=== PATIENT | female | born 1960 | race Caucasian/White ===

== ENCOUNTER 2021-06-28 14:30 | Day surgery (SDC) | payer BC, OTHER, SELFPAY ==
[2021-06-22 08:17] VITALS: BMI 16.5
[2021-06-28] VITALS (11 sets, daily range): BP systolic 108–126; BP diastolic 72–85; PULSE 89–104; RESP 14–24; TEMP 36.5–36.7; O2SAT 94–100
[2021-06-28] MEDS: sodium chloride 0.9% 1,000 ML 30 ML IV (11:35)
--- NOTE | 2021-06-28 12:00 | US_ITS ---
WS: [id number] INDICATION: Liver biopsy TECHNIQUE: Ultrasound-guided liver biopsy FINDINGS: Outside CT was reviewed. The procedure including risks, benefits, and complications were discussed the patient who agreed to p roceed. Timeout was performed. Using sterile technique, the patient was prepped and draped in usual s terile fashion. After 1% lidocaine using ultrasound guidance 5-6 core samples were obtained of a jackie nant cluster of lesions in the anterior liver. No immediate complications. Patient was discharged 2 h ours postprocedure in stable condition. US/US biopsy liver [id number] IMPRESSION: Uncomplicated Liver biopsy. Pathology is pending.
[2021-06-28 12:18] LABS: INR 1.29 (0.8-1.2)
[2021-06-28] MEDS: fentaNYL 50 mcg/mL INJ 2mL 25 MCG IVP ×2 (12:30→12:41)
--- NOTE | 2021-06-28 12:30 | SUR.OPER ---
Dr. Sher at bedside to perform ultrasound biopsy of liver mass. Time out completed, total of 10 mL Lidocaine given at biopsy site as local anesthetic. Pt on monitor with O2 at 2L via NC in place. Total of 50 mcg Fentanyl and 2 mg Versed given IVP during procedure as ordered. Pt tolerated procedure well. Drowsy but arouses easily to verbal stimuli. 4X4 with opsite applied to RUQ. Site without hematoma or bleeding noted.
[2021-06-28] MEDS: midazolam 1 mg/mL INJ 2 mL IVP ×2 (12:31→12:42)
--- NOTE | 2021-06-28 13:12 | SUR.PHASEII ---
Pt family member called and updated on pt status. Pt to stay for 2 hours and be discharged if VSS and no bleeding.
== END 2021-06-28 14:45 | disposition home or self-care (01) ==
LOC: GILAB 06-29 14:13
PROVIDERS: Radiology Neuroradiology; PCP Family Medicine; Visit Provider Internal Medicine
DX: C22.7 Other specified carcinomas of liver (principal)
CPT/HCPCS: 36415; 47000; 76942; 85610; 88307; 96361; 96374; 96375; J2250; J3010; J7030

== ENCOUNTER 2021-07-04 11:23 | Outpatient (CLI) | payer BC, OTHER, SELFPAY ==
[2021-07-04 12:05] LABS: Basophils # 0.1 10^3/uL (0.0-0.1); Basophils % 0.6 %; Eosinophils # 0.1 10^3/uL (0.0-0.8); Hematocrit 45.4 % (37.0-47.0); Hemoglobin 14.8 g/dL (11.5-15.3); Lymphocytes # 2.8 10^3/uL (0.8-4.8); Lymphocytes % 25.6 %; Mean Corpuscular HGB Conc 32.6 g/dL (30.0-36.0); Mean Corpuscular Hemoglobin 27.6 pg (28.0-34.0); Mean Corpuscular Volume 84.5 fl (81-99); Mean Platelet Volume 9.5 fL (7.4-10.4); Monocytes # 0.9 10^3/uL (0.2-0.9); Monocytes % 7.9 %; Neutrophils # 7.01 10^3/uL (1.8-7.7); Neutrophils % 64.3 %; Nucleated Red Blood Cells % 0 %; Platelet Count 672 10^3/cmm (130-400); Red Blood Count 5.37 10^6/uL (4.1-5.3); Red Cell Distribution Width 16.9 % (12.1-15.1); White Blood Count 10.9 10^3/uL (4.0-10.0)
[2021-07-04 12:08] LABS: Ammonia 41 umol/L (11-51)
[2021-07-04 12:29] LABS: Tumor Marker Alpha Fetoprotein 11.4 ng/mL (0-8.3)
[2021-07-04 12:40] LABS: Alanine Aminotransferase 29 U/L (0-33); Albumin Level 2.7 g/dL (3.5-5.2); Alkaline Phosphatase 242 IU/L (35-105); Anion Gap 13.4 (5-19); Aspartate Amino Transferase 34 U/L (0-32); Blood Urea Nitrogen 10 mg/dL (8-23); Calcium 8.1 mg/dL (8.5-10.5); Carbon Dioxide 22 mmol/L (22-29); Chloride 101 mmol/L (98-107); Globulin 3.3 g/dL (1.3-4.6); Glomerular Filtration Rate 125.4 mL/min (90-130); Glucose 77 mg/dL (65-115); Osmolality Calculated 274 mOsm/kg (285-295); Potassium 3.4 mmol/L (3.5-5.1); Sodium 133 mmol/L (136-145); Total Bilirubin 0.4 mg/dL (0.15-1.2)
== END 2021-07-04 11:24 | disposition home or self-care (01) ==
LOC: LAB 11:33
PROVIDERS: PCP Family Medicine; Visit Provider Internal Medicine
DX: R16.0 Hepatomegaly, not elsewhere classified (principal); R93.2 Abnormal findings on diagnostic imaging of liver and biliary tract
CPT/HCPCS: 80053; 82105; 82140; 85025

== ENCOUNTER 2021-07-10 09:54 | Outpatient (CLI) | payer BC, OTHER, SELFPAY ==
--- NOTE | 2021-07-10 13:26 | ONC CON_ITS ---
Dr. Welsh New Patient Note Patient: Eva Johnson Unit #: [id number]: 1960 Dicatated By: Gonzalo Welsh M.D.Date of Visit: Jul 10, 2021 Onc MED New Patient/Consult Referring Physician: Dr. Phillip Abbott M.D. History of Present Illness: Ms. Eva Johnson, is a 60-year-old female with progressive diarrhea of over 4-months duration was evaluated by GI, patient underwent EGD and colonoscopy about a month prior to diagnosis and was told that colonoscopy was not completed because of possible kink or external pressure from the liver, as per patient she underwent barium enema which was unremarkable and her EGD shows 'Raw stomach. Patient said she tried antidiarrheal medication without any success also tried liquid diet and different types of food without any success, she has lost about 30 pounds over the period of 4 months, initially she used to have cramps but no more abdominal cramps, no melena or hematochezia no mucus, no nausea or vomiting, no facial flushing, no bronchial wheezing, no abdominal fullness, no fever chills, no hemoptysis or hematemesis, no jaundice, patient denies any overseas trips. Denies any night sweats denies any recurrent fever denies any dysuria or hematuria but recently episode of UTI which was treated with antibiotics. Patient denies smoking, quit 4 years ago prior to that 30+ year history of smoking denies alcohol use. Past Medical History: There is no documented medical history. Past Surgical History: Ms. Johnson's surgical/procedural history consists of covid vaccine #2 in 2020 and covid vaccine #1 in 2020. Medications: Protonix 1 Tablet (of 40 mg) Tablet, enteric coated Oral daily Allergies: No Known Allergies. Social History: Ms. Johnson is . Ms. Johnson has never smoked. She has no history of drinking. Family History: Ms. Johnson's mother at age 67: DEMENTIA. Ms. Johnson's father at age 40: Cancer. Ms. Johnson has 1 brother who is alive. Review Of Symptoms: Review of Systems is not available for this patient. Vital Signs: Performed on Jul 10, 2021 11:18: 5, 0, 16.65 (LOW), 1.44 sq.m, 64 in, 97 %, 97 /min, 18 /min, 103/68 mm(hg), 96.3 F (LOW), and 97 lbs (HIGH). Performance Status: 1 - No physically strenuous activity, but ambulatory and able to carry out light or sedentary work (e.g. office work, light house work). (ECOG) Physical Examination: ENMT - No mouth sores, no thrush, no jaundice no cervical lymphadenopathy, Respiratory - Lungs are clear to auscultation, Cardiovascular - Regular rate and rhythm of heart, Abdomen - Soft, bowel sounds present, and no mass palpable no rebound tenderness, Extremities - Trace edema bilaterally. Lab/Imaging: Most recent lab results are not available for this patient. Impression: Neuroendocrine tumor per ultrasound-guided liver biopsy done on June 28, 2021 further evaluation showed mitotic index more than 20 mitosis per 2 mm??? and KI 67 more than 20%, being positive for CDX 2, suggestive of GI primary, as alpha-fetoprotein level was low which suggest a low probability of neuroendocrine tumor having primary liver lesion. CT scan of abdomen done on June 16, 2021 showed enlarged and cirrhotic appearance of the liver with numerous hypoenhancing lesions, solid enhancing mass in the right hepatic lobe and cystic and necrotic lesion in the left lateral lobe concerning for neoplasm, metastatic disease. 2.5 cm oval left retroperitoneal enhancing lesion concerning for mass or mesenteric lymph node. Chronic diarrhea etiology unclear, malabsorption or increase GI motility due to metabolically active neuroendocrine tumor Plan: Discussed with patient regarding her disease status and further planning, as per discussion with pathology, her liver biopsy showed neuroendocrine tumor with a high mitotic index e.g. more than 20 per 2 mm??? and Ki-67 more than 20%, suggestive of aggressive neuroendocrine tumor which may behave like small cell, at the same time, chronic diarrhea, which could be due to metabolically active neuroendocrine tumor which is less common in high-grade neuroendocrine tumor???she may have mixed type neuroendocrine tumor e.g. low-grade/high-grade. At this point , we will proceed with CT PET scan to assess the extent of the disease and possible primary and also consider serotonin level, chromogranin A level, 24-hour urine for 5-HIAA, gastrin level to confirm metabolically active neuroendocrine tumor and if PET scan shows increased activity in the liver or other places, we may consider systemic therapy with small cell lung cancer based regimen on the other hand PET scan shows no abnormal uptake and biochemical profile confirmed metabolically active neuroendocrine tumor, then will discuss with pathology again regarding mitotic index/Ki-67 and consider treatment with Sandostatin LAR 20 mg every month, which will help her diarrhea and may stabilize disease progression.And also consider octreotide scan, Her lab work-up done in her primary care's office shows mild hypokalemia, will consider KCl 20 mg p.o. daily for 1 week then as needed and also check magnesium level if low will consider supplement patient return to clinic in 10 days with CBC CMP. Signed By: Gonzalo Welsh M.D. <<Signature on File>>
[2021-07-10 13:54] LABS: Alanine Aminotransferase 31 U/L (0-33); Albumin Level 2.7 g/dL (3.5-5.2); Alkaline Phosphatase 184 IU/L (35-105); Anion Gap 12.4 (5-19); Aspartate Amino Transferase 35 U/L (0-32); Blood Urea Nitrogen 12 mg/dL (8-23); Calcium 8.6 mg/dL (8.5-10.5); Carbon Dioxide 22 mmol/L (22-29); Chloride 107 mmol/L (98-107); Globulin 3.2 g/dL (1.3-4.6); Glomerular Filtration Rate 162.3 mL/min (90-130); Glucose 76 mg/dL (65-115); Magnesium 2.1 mg/dL (1.7-2.3); Osmolality Calculated 285 mOsm/kg (285-295); Potassium 3.4 mmol/L (3.5-5.1); Sodium 138 mmol/L (136-145); Total Bilirubin 0.4 mg/dL (0.15-1.2); Total Protein 5.9 g/dL (6.6-8.7)
[2021-07-15 12:06] LABS: Gastrin 103 pg/mL (< OR = 100)
[2021-07-23 10:03] LABS: Serotonin Whole Blood >2000 ng/mL (56-244)
== END 2021-07-10 09:55 | disposition home or self-care (01) ==
LOC: ONCMED 09:58
PROVIDERS: PCP Family Medicine; Visit Provider Internal Medicine Hematology & Oncology
DX: C7A.098 Malignant carcinoid tumors of other sites (principal); C7B.01 Secondary carcinoid tumors of distant lymph nodes; C7B.09 Secondary carcinoid tumors of other sites; K52.9 Noninfective gastroenteritis and colitis, unspecified; K90.9 Intestinal malabsorption, unspecified; Z79.899 Other long term (current) drug therapy
CPT/HCPCS: 36415; 80053; 82941; 83735; 84260; 86316; 99205

== ENCOUNTER 2021-07-12 12:47 | Outpatient (CLI) | payer BC, OTHER, SELFPAY ==
[2021-07-18 18:58] LABS: 24 Hour Urine Volume 750 mL
== END 2021-07-12 12:48 | disposition home or self-care (01) ==
LOC: ONCMED 12:50
PROVIDERS: PCP Family Medicine; Visit Provider Internal Medicine Hematology & Oncology
DX: C7A.8 Other malignant neuroendocrine tumors (principal)
CPT/HCPCS: 83497

== ENCOUNTER 2021-07-28 08:51 | Outpatient (CLI) | payer BC, OTHER, SELFPAY ==
[2021-07-28 10:32] LABS: Basophils % 0.4 %; Eosinophils % 0.3 %; Hematocrit 44.2 % (37.0-47.0); Hemoglobin 14.4 g/dL (11.5-15.3); Lymphocytes # 1.9 10^3/uL (0.8-4.8); Lymphocytes % 24.3 %; Mean Corpuscular HGB Conc 32.6 g/dL (30.0-36.0); Mean Corpuscular Hemoglobin 27.5 pg (28.0-34.0); Mean Corpuscular Volume 84.4 fl (81-99); Mean Platelet Volume 10.1 fL (7.4-10.4); Monocytes # 0.7 10^3/uL (0.2-0.9); Monocytes % 9.1 %; Neutrophils # 4.99 10^3/uL (1.8-7.7); Neutrophils % 65.5 %; Nucleated Red Blood Cells % 0 %; Platelet Count 432 10^3/cmm (130-400); Red Blood Count 5.24 10^6/uL (4.1-5.3); Red Cell Distribution Width 15.2 % (12.1-15.1); White Blood Count 7.6 10^3/uL (4.0-10.0)
[2021-07-28 10:57] LABS: Alanine Aminotransferase 49 U/L (0-33); Albumin Level 2.7 g/dL (3.5-5.2); Alkaline Phosphatase 153 IU/L (35-105); Blood Urea Nitrogen 17 mg/dL (8-23); Carbon Dioxide 26 mmol/L (22-29); Chloride 102 mmol/L (98-107); Globulin 2.8 g/dL (1.3-4.6); Glomerular Filtration Rate 125.4 mL/min (90-130); Glucose 88 mg/dL (65-115); Osmolality Calculated 283 mOsm/kg (285-295); Sodium 136 mmol/L (136-145); Total Bilirubin 0.3 mg/dL (0.15-1.2); Total Protein 5.5 g/dL (6.6-8.7)
[2021-07-28 10:59] LABS: Anion Gap 12.1 (5-19); Aspartate Amino Transferase 57 U/L (0-32); Potassium 4.1 mmol/L (3.5-5.1)
[2021-07-28 11:44] LABS: Hepatitis A Antibody IgM Non-Reactive (Nonreactive); Hepatitis B Core AB, Total Non-Reactive (Nonreactive); Hepatitis B Surface AB 520.2 (11.5-1000); Hepatitis B Surface Antigen Non-Reactive (Nonreactive); Hepatitis C Virus Antibody Non-Reactive (Nonreactive)
--- NOTE | 2021-07-28 12:49 | ONC FU_ITS ---
Dr. Welsh follow up note Patient: Eva Johnson Unit #: [id number]: 1960 Dicatated By: Gonzalo Welsh M.D.Date of Visit:Jul 28, 2021 Onc Med Follow-up/Prog Note History of Present Illness: Ms. Eva Johnson, is a 60-year-old female with progressive diarrhea of over 4-months duration was evaluated by GI, patient underwent EGD and colonoscopy about a month prior to diagnosis and was told that colonoscopy was not completed because of possible kink or external pressure from the liver, as per patient she underwent barium enema which was unremarkable and her EGD shows 'Raw stomach. Patient said she tried antidiarrheal medication without any success also tried liquid diet and different types of food without any success, she has lost about 30 pounds over the period of 4 months, initially she used to have cramps but no more abdominal cramps, no melena or hematochezia no mucus, no nausea or vomiting, no facial flushing, no bronchial wheezing, no abdominal fullness, no fever chills, no hemoptysis or hematemesis, no jaundice, patient denies any overseas trips. Denies any night sweats denies any recurrent fever denies any dysuria or hematuria but recently episode of UTI which was treated with antibiotics. Patient denies smoking, quit 4 years ago prior to that 30+ year history of smoking denies alcohol use. Lab work-up done on July 18, 2021 showed serotonin level more than 2000, normal being less than 244, chromogranin A level 236,009 normal being less than 311 gastrin level 103 normal being less than 100, 24-hour urine for 5-HIAA is more than 375 normal being less than 6 , As her pathology shows grade 3 neuroendocrine tumor with a high Ki-67, and extensive liver involvement, biopsy-proven, there was a concern whether she has aggressive neuroendocrine tumor behaving like small cell carcinoma so CT PET scan done on July 27, 2021 shows borderline increased activity with SUV of 2.4 and mildly enlarged single lymph node in the left periaortic space. Moderate ascites. Hepatomegaly with heterogeneous density throughout the liver with nodular border suggesting cirrhosis Came for follow-up, still complaining of severe diarrhea 10-15 bowel movements a day, generalized weakness and fatigue, trying her best to maintain hydration, no nausea or vomiting, no fever chills, no bronchial wheezing, no facial flushing but progressive weight loss, so far she has lost about 30 pounds over the period of 6 months Medications: Imodium A-D Capsule Oral PRN, Ondansetron HCl 1 Tablet (of 4 mg) Oral PRN, Protonix 1 Tablet (of 40 mg) Tablet, enteric coated Oral daily Allergies: No Known Allergies. Review of Systems: Review of Systems is not available for this patient. Vital Signs: Performed on Jul 28, 2021 09:01 Height - 64.00 in Weight - 98.2 lbs (HIGH) BSA - 1.45 sq.m BMI - 16.86 (LOW) Temperature - 98.1 F (LOW) Pulse - 79 /min Respiration - 20 /min BP - 94/69 mm(hg) O2 Sat - 99 % Pain - 0 Performance Status: 2 - Ambulatory/capable of all self-care, unable to perform any work activities. Up and about more than 50% of waking hours. (ECOG) Physical Examination: ENMT - No mouth sores, no thrush, no jaundice, Respiratory - Lungs are clear to auscultation, Cardiovascular - Regular rate and rhythm of heart, Abdomen - Soft, bowel sounds present, Extremities - Trace edema bilaterally. Lab/Imaging: Most recent lab results are not available for this patient. Impression: Neuroendocrine tumor per ultrasound-guided liver biopsy done on June 28, 2021 further evaluation showed mitotic index more than 20 mitosis per 2 mm??? and KI 67 more than 20%, being positive for CDX 2, suggestive of GI primary, alpha-fetoprotein level was low which suggest a low probability of neuroendocrine tumor having primary liver lesion. Lab work-up done on July 18, 2021 showed serotonin level more than 2000, normal being less than 244, chromogranin A level 236,009 normal being less than 311 gastrin level 103 normal being less than 100, 24-hour urine for 5-HIAA is more than 375 normal being less than 6 , As her pathology shows grade 3 neuroendocrine tumor with a high Ki-67, and extensive liver involvement, biopsy-proven, there was a concern whether she has aggressive neuroendocrine tumor behaving like small cell carcinoma so CT PET scan done on July 27, 2021 shows borderline increased activity with SUV of 2.4 and mildly enlarged single lymph node in the left periaortic space. Moderate ascites. Hepatomegaly with heterogeneous density throughout the liver with nodular border suggesting cirrhosis CT scan of abdomen done on June 16, 2021 showed enlarged and cirrhotic appearance of the liver with numerous hypoenhancing lesions, solid enhancing mass in the right hepatic lobe and cystic and necrotic lesion in the left lateral lobe concerning for neoplasm, metastatic disease. 2.5 cm oval left retroperitoneal enhancing lesion concerning for mass or mesenteric lymph node. Chronic diarrhea etiology unclear, malabsorption or increase GI motility due to metabolically active neuroendocrine tumor Plan: Discussed with patient regarding her labs Showed white blood count 7.6 hemoglobin 14.4 hematocrit 44.2 platelets 432,000, CMP within normal limit except albumin 2.7, ALT 49, AST 57, alk phos 153 and Lab work-up done on July 18, 2021 showed serotonin level more than 2000, normal being less than 244, chromogranin A level 236,009 normal being less than 311 gastrin level 103 normal being less than 100, 24-hour urine for 5-HIAA is more than 375 normal being less than 6 , As her pathology shows grade 3 neuroendocrine tumor with a high Ki-67, and extensive liver involvement, biopsy-proven, there was a concern whether she has aggressive neuroendocrine tumor behaving like small cell carcinoma so CT PET scan done on July 27, 2021 shows borderline increased activity with SUV of 2.4 and mildly enlarged single lymph node in the left periaortic space. Moderate ascites. Hepatomegaly with heterogeneous density throughout the liver with nodular border suggesting cirrhosis Clinically, patient is in mild to moderate distress due to persistent and progressive diarrhea most likely due to metabolically active neuroendocrine tumor as her lab work-up shows very serotonin/chromogranin A level and also elevated 5-HIAA and 24-hour urine. 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 We will also consider hepatitis profile, patient has mildly elevated transaminases and also Based on scans, hepatic cirrhosis. We will also consider referral to neuroendocrine oncology clinic at [place] for evaluation regarding clinical trial if available. Patient return to clinic in 1 month with CBC CMP Signed By: Gonzalo Welsh M.D. <<Signature on File>>
== END 2021-07-28 08:52 | disposition home or self-care (01) ==
PROVIDERS: PCP Family Medicine; Visit Provider Internal Medicine Hematology & Oncology
DX: C7A.1 Malignant poorly differentiated neuroendocrine tumors (principal); R18.8 Other ascites; R19.7 Diarrhea, unspecified; R59.1 Generalized enlarged lymph nodes; K74.60 Unspecified cirrhosis of liver; Z87.891 Personal history of nicotine dependence
CPT/HCPCS: 36415; 80053; 85025; 86705; 86706; 86709; 86803; 87340; 99214

== ENCOUNTER 2021-08-02 06:41 | Outpatient (CLI) | payer BC, OTHER, SELFPAY ==
[2021-08-02] MEDS: octreotide LAR depot 20 mg Kit IM (13:55)
== END 2021-08-02 06:42 | disposition home or self-care (01) ==
LOC: ONCMED 06:42
PROVIDERS: PCP Family Medicine; Visit Provider Internal Medicine Hematology & Oncology
DX: C7A.098 Malignant carcinoid tumors of other sites (principal); Z79.899 Other long term (current) drug therapy
CPT/HCPCS: 96372; J2353

== ENCOUNTER 2021-09-04 08:40 | Outpatient (CLI) | payer BC, OTHER, SELFPAY ==
[2021-09-04 09:59] LABS: Basophils # 0.1 10^3/uL (0.0-0.1); Basophils % 0.6 %; Eosinophils % 0.4 %; Hematocrit 46.1 % (37.0-47.0); Hemoglobin 14.9 g/dL (11.5-15.3); Lymphocytes % 24.9 %; Mean Corpuscular HGB Conc 32.3 g/dL (30.0-36.0); Mean Corpuscular Hemoglobin 26.4 pg (28.0-34.0); Mean Corpuscular Volume 81.6 fl (81-99); Mean Platelet Volume 10.1 fL (7.4-10.4); Monocytes # 0.5 10^3/uL (0.2-0.9); Neutrophils # 5.54 10^3/uL (1.8-7.7); Neutrophils % 67.6 %; Nucleated Red Blood Cells % 0 %; Platelet Count 312 10^3/cmm (130-400); Red Blood Count 5.65 10^6/uL (4.1-5.3); White Blood Count 8.2 10^3/uL (4.0-10.0)
[2021-09-04 10:19] LABS: Alanine Aminotransferase 47 U/L (0-33); Alkaline Phosphatase 196 IU/L (35-105); Blood Urea Nitrogen 11 mg/dL (8-23); Calcium 7.6 mg/dL (8.5-10.5); Carbon Dioxide 24 mmol/L (22-29); Chloride 105 mmol/L (98-107); Globulin 2.9 g/dL (1.3-4.6); Glomerular Filtration Rate 101.6 mL/min (90-130); Glucose 101 mg/dL (65-115); Osmolality Calculated 282 mOsm/kg (285-295); Sodium 136 mmol/L (136-145); Total Bilirubin 0.5 mg/dL (0.15-1.2); Total Protein 4.9 g/dL (6.6-8.7)
[2021-09-04 10:25] LABS: Anion Gap 11.8 (5-19); Aspartate Amino Transferase 59 U/L (0-32); Potassium 4.8 mmol/L (3.5-5.1)
[2021-09-04] MEDS: octreotide LAR depot 20 mg Kit IM (12:00)
--- NOTE | 2021-09-05 17:31 | ONC FU_ITS ---
Dr. Welsh follow up note Patient: Eva Johnson Unit #: [id number]: 1960 Dicatated By: Gonzalo Welsh M.D.Date of Visit:Sep 04, 2021 Onc Med Follow-up/Prog Note History of Present Illness: Ms. Eva Johnson, is a 60-year-old female with progressive diarrhea of over 4-months duration was evaluated by GI, patient underwent EGD and colonoscopy about a month prior to diagnosis and was told that colonoscopy was not completed because of possible kink or external pressure from the liver, as per patient she underwent barium enema which was unremarkable and her EGD shows 'Raw stomach. Patient said she tried antidiarrheal medication without any success also tried liquid diet and different types of food without any success, she has lost about 30 pounds over the period of 4 months, initially she used to have cramps but no more abdominal cramps, no melena or hematochezia no mucus, no nausea or vomiting, no facial flushing, no bronchial wheezing, no abdominal fullness, no fever chills, no hemoptysis or hematemesis, no jaundice, patient denies any overseas trips. Denies any night sweats denies any recurrent fever denies any dysuria or hematuria but recently episode of UTI which was treated with antibiotics. Patient denies smoking, quit 4 years ago prior to that 30+ year history of smoking denies alcohol use. Lab work-up done on July 18, 2021 showed serotonin level more than 2000, normal being less than 244, chromogranin A level 236,009 normal being less than 311 gastrin level 103 normal being less than 100, 24-hour urine for 5-HIAA is more than 375 normal being less than 6 , As her pathology shows grade 3 neuroendocrine tumor with a high Ki-67, and extensive liver involvement, biopsy-proven, there was a concern whether she has aggressive neuroendocrine tumor behaving like small cell carcinoma so CT PET scan done on July 27, 2021 shows borderline increased activity with SUV of 2.4 and mildly enlarged single lymph node in the left periaortic space. Moderate ascites. Hepatomegaly with heterogeneous density throughout the liver with nodular border suggesting cirrhosis Started on Sandostatin LAR 20 mg on August 02, 2021 Came for follow-up, denies any specific complaint except persistent diarrhea which is improving since start taking Metamucil and on Sandostatin since August 02, 2021., Now started going back to work as a part-time. Denies any fever chills but mild nausea. No abdominal pain, no shortness of breath no palpitation, no facial flushing, no skin rash, tolerating Sandostatin well otherwise, patient was referred to [place] [facility] but due to her insurance coverage patient was not accepted Medications: Diphenoxylate-Atropine 1 Tablet (of 2.5-0.025 mg) Oral q 4 hours PRN, Imodium A-D Capsule Oral PRN, Ondansetron HCl 1 Tablet (of 4 mg) Oral PRN, Protonix 1 Tablet (of 40 mg) Tablet, enteric coated Oral daily Allergies: No Known Allergies. Review of Systems: Review of Systems is not available for this patient. Vital Signs: Performed on Sep 04, 2021 10:55 Height - 64.00 in Temperature - 96.9 F (LOW) Pulse - 98 /min Respiration - 18 /min BP - 91/64 mm(hg) O2 Sat - 99 % Pain - 0 Fatigue - 9 Performance Status: 1 - No physically strenuous activity, but ambulatory and able to carry out light or sedentary work (e.g. office work, light house work). (ECOG) Physical Examination: ENMT - No mouth sores, no thrush, no jaundice, Respiratory - Lungs are clear to auscultation, Cardiovascular - Regular rate and rhythm of heart, Abdomen - Soft, bowel sounds present, mild fluid shift, Extremities - Trace edema bilaterally. Lab/Imaging: Most recent lab results are not available for this patient. Impression: Neuroendocrine tumor per ultrasound-guided liver biopsy done on June 28, 2021 further evaluation showed mitotic index more than 20 mitosis per 2 mm??? and KI 67 more than 20%, being positive for CDX 2, suggestive of GI primary, alpha-fetoprotein level was low which suggest a low probability of neuroendocrine tumor having primary liver lesion. CT scan of abdomen done on June 16, 2021 showed enlarged and cirrhotic appearance of the liver with numerous hypoenhancing lesions, solid enhancing mass in the right hepatic lobe and cystic and necrotic lesion in the left lateral lobe concerning for neoplasm, metastatic disease. 2.5 cm oval left retroperitoneal enhancing lesion concerning for mass or mesenteric lymph node. Chronic diarrhea etiology unclear, malabsorption or increase GI motility due to metabolically active neuroendocrine tumor Plan: Discussed with patient regarding her labs white blood count 8.2 hemoglobin 14.9 hematocrit 46.1 platelets 312,000 CMP within normal limits except albumin 2.0 and alk phos 196 Clinically, patient is doing reasonably well, still has diarrhea but is improving since she is on Metamucil and Sandostatin, will proceed with next monthly dose of Sandostatin LAR 20 mg. And then we will refer her to [facility]ocrine clinic [facility], for evaluation regarding clinical trial if available. And patient will also need hepatology consultation regarding her hepatic cirrhosis and ascites mentioned on the CT PET scan. Patient return to clinic in 1 month with CBC CMP And for Sandostatin therapy Signed By: Gonzalo Welsh M.D. <<Signature on File>>
== END 2021-09-04 08:41 | disposition home or self-care (01) ==
PROVIDERS: PCP Family Medicine; Visit Provider Internal Medicine Hematology & Oncology
DX: C7A.098 Malignant carcinoid tumors of other sites (principal); C7B.01 Secondary carcinoid tumors of distant lymph nodes; C7B.04 Secondary carcinoid tumors of peritoneum; C7B.09 Secondary carcinoid tumors of other sites; R19.7 Diarrhea, unspecified; Z79.899 Other long term (current) drug therapy; Z79.818 Long term (current) use of other agents affecting estrogen receptors and estrogen levels
CPT/HCPCS: 36415; 80053; 85025; 96372; 99214; J2353

== ENCOUNTER 2021-09-18 12:24 | Inpatient (IN) | payer BC, OTHER, SELFPAY ==
[2021-09-18] VITALS (20 sets, daily range): BP systolic 78–99; BP diastolic 50–64; PULSE 84–100; RESP 14–22; TEMP 36.2–36.4; O2SAT 91–98; BMI 16.5; BMI 17.7
--- NOTE | 2021-09-18 13:29 | PC.NURSE ---
REPORT GIVEN TO [facility].
--- NOTE | 2021-09-18 13:42 | ECG_ITS ---
[facility] Test Date: 2021-09-18 Pat Name: Eva Johnson Department: Room: Gender: Female Leak Detector: : 1960 Requested By: Cooper Goyal Order Number: [id number] Mario MD: Juju Valente M.D. Measurements Intervals [place] Rate: 94 P: 55 IN: 144 QRS: 45 QRSD: 71 T: 93 QT: 302 QTc: 379 Interpretive Statements SINUS RHYTHM LOW QRS VOLTAGE IN EXTREMITY LEADS [QRS DEFLECTION < 0.5 mV IN LIMB LEADS] NONSPECIFIC T-WAVE ABNORMALITY No previous ECG available for comparison Electronically Signed On 09-19-2021 17:58:52 PERINATAL NURSE by Juju Valente M.D. [id number]
--- NOTE | 2021-09-18 13:47 | ED_ITS ---
Documented by User: Cooper Martinez DO 09/19/21 07:47 HPI - Weakness General: Chief complaint: Weakness Stated complaint: NOT EATING HAS CANCER VERY WEAK Time Seen by Provider: 09/18/21 13:25 History of Present Illness: HPI Narrative: 80-year-old female presents emergency room with complaints of generalized weakness. 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 She has had progressive worsening with ascites bloating loss of appetite poor oral intake. MD Complaint: generalized weakness Onset (ago): minute(s) Duration: progressively worsening Location: generalized Severity: severe Relieving factors: none Exacerbating factors: none Associated symptoms: Reports nausea and vomiting; Denies chest pain, chills, confusion, melena, decreased appetite, diaphoresis, dysuria, easy bruising, fever(s), headache(s), myalgias, rash or short of breath Review of Systems Const: Denies: fever(s), chills or diaphoresis ENMT: Denies: throat pain, ear or mastoid pain, nasal discharge or nasal congestion Card: Denies: chest pain Resp: Denies: dyspnea, productive cough or non-productive cough GI: Reports: nausea, vomiting, diarrhea and bloating; Denies: melena : Denies: dysuria Skin/Breast: Denies: rash or pruritus Neuro: Denies: headache(s) or confusion [place]/Lymph: Denies: easy bruising PFS ED PFSH: Medical History (Updated 09/19/21 @ 00:23 by Smitha Coleman MD) Hip fracture Family History Father Cancer Social History Smoking and tobacco status: former smoker Number of children: 4 service: No History of recent travel: No Physical Exam Const: COMMON NORMALS: no acute distress GENERAL APPEARANCE: frail appearing NUTRITIONAL APPEARANCE: cachectic ORIENTATION/CONSCIOUSNESS: Yes awake, Yes oriented to person, Yes oriented to place and Yes oriented to time HENMT: COMMON NORMALS: normocephalic, atraumatic and hearing grossly normal bilaterally HEAD & SCALP: normocephalic and atraumatic Neck/C-Spine: COMMON NORMALS: no JVD Resp: COMMON NORMALS: normal respiratory effort, No retractions, No use of accessory muscles and clear to auscultation bilaterally AUSCULTATION: clear to auscultation bilaterally Cardio: COMMON NORMALS: no JVD, regular rate, regular rhythm and No murmurs present (Cardio) RATE: regular rate RHYTHM: regular rhythm GI: COMMON NORMALS: Soft to palpation and No hepatosplenomegaly present AUSCULTATION: Yes normoactive bowel sounds PALPATION: Yes Soft to palpation, No Tenderness to palpation present (GI), No Guarding due to palpation present (GI) and Yes No hepatosplenomegaly present Extremity: COMMON NORMALS: normal to inspection, capillary refill normal, no clubbing, cyanosis or edema and no calf tenderness GENERAL: Yes edema (1+ edema lower extremities) Neuro: SENSORIUM/ORIENTATION: Yes oriented to person, Yes oriented to place and Yes oriented to time Skin: COMMON NORMALS: no rashes or lesions noted GENERAL SKIN EXAM: no rashes or lesions noted Course Vital Signs: Vital signs: Vital Signs Temperature 98.1 F 09/19/21 07:32 Pulse Rate 82 09/19/21 07:32 Respiratory Rate 19 H 09/19/21 07:32 Blood Pressure 113/70 09/19/21 07:32 Pulse Oximetry 96 09/19/21 07:32 MDM - Weakness MDM Narrative: Medical decision making narrative: Fluid bolus given slight improvement in blood pressure. Labs pending, staff had difficult time obtaining blood sample. Care turned over to Dr. Lyon at change of shift see his notes for final diagnosis and disposition. Lab Data: Labs: Lab Results 09/18/21 09/18/21 09/18/21 15:42 16:20 16:20 WBC Cancelled Corrected WBC Cancelled RBC Cancelled Hgb Cancelled Hct Cancelled MCV Cancelled MCH Cancelled MCHC Cancelled RDW Cancelled Plt Count Cancelled MPV Cancelled Gran % Cancelled Neut % (Auto) Cancelled Lymph % (Auto) Cancelled [place] % (Auto) Cancelled Eos % (Auto) Cancelled Baso % (Auto) Cancelled Neut # (Auto) Cancelled Lymph # (Auto) Cancelled [place] # (Auto) Cancelled Eos # (Auto) Cancelled Baso # (Auto) Cancelled Absolute Gran (aut o) Cancelled Nucleated RBC % (a uto) Cancelled Nucleated RBCs # Cancelled Specimen Type Arterial Sample Site Brachial, left ABG pH 7.37 (7.35-7.45) ABG pCO2 41.4 mmHg mmHg (35-45) ABG pO2 52.5 mmHg L mmHg (80.0-100.0) ABG HCO3 23.9 mmol/L mmol/ L (22-26) ABG O2 Saturation 86.7 ABG Base Excess -1.4 mmol/L mmol/ L (-2.0-2.0) Dada Test Pos A-a O2 Gradient 6.0 mmHg mmHg (5-10) Hematocrit 39.1 % % (37-47) Hgb O2 Saturation 85.3 % L % (95-100) Carboxyhemoglobin 0.8 %THgb %THgb (0.4-20.1) Methemoglobin 0.8 % % (0.4-1.5) Total Hemoglobin 12.8 g/dL g/dL (12-16) Sodium 131.0 mmol/L mmol /L (131-143) Potassium 4.3 mmol/L mmol/L (3.5-5.0) Glucose 68.0 mg/dL L mg/d L (70-115) Ionized Calcium 1.1 mmol/L mmol/L (1.1-1.4) O2 Delivery Device Room air FiO2 21.0 % % Electric Meter Tester Helper ID Monro Chloride Carbon Dioxide Anion Gap BUN Creatinine GFR Calculation Calculated Osmolal ity Lactic Acid 4.2 mmol/L H* mmo l/L (0.5-2.2) Lactic Acid (Sepsi s) Calcium Total Bilirubin AST ALT Alkaline Phosphata se Creatine Kinase Total Protein Albumin Globulin Lipase Urine Color Urine Appearance Urine pH Ur Specific Gravit y Urine Protein Urine Glucose (UA) Urine Ketones Urine Blood Urine Nitrate Urine Bilirubin Urine Urobilinogen Ur Leukocyte Zuleyka ase Urine RBC Urine WBC Ur Squamous Epith Cells Ur Renal Epithelia l Cell Uric Acid Crystals Other Crystals Amorphous Sediment Urine Bacteria Coarse Granular Ca sts 09/18/21 09/18/21 09/18/21 16:20 17:45 18:00 WBC 20.2 10^3/uL H 10 ^3/uL (4.0-10.0) Corrected WBC RBC 5.61 10^6/uL H 10 ^6/uL (4.1-5.3) Hgb 14.8 g/dL g/dL (11.5-15.3) Hct 45.1 % % (37.0-47.0) MCV 80.4 fl L fl (81-99) MCH 26.4 pg L pg (28.0-34.0) MCHC 32.8 g/dL g/dL (30.0-36.0) RDW 18.4 % H % (12.1-15.1) Plt Count 227 10^3/cmm 10^3 /cmm (130-400) MPV 10.7 fL H fL (7.4-10.4) Gran % Neut % (Auto) 81.8 % % Lymph % (Auto) 13.1 % % [place] % (Auto) 4.1 % % Eos % (Auto) 0.0 % % Baso % (Auto) 0.4 % % Neut # (Auto) 16.54 10^3/uL H 1 0^3/uL (1.8-7.7) Lymph # (Auto) 2.6 10^3/uL 10^3/ uL (0.8-4.8) [place] # (Auto) 0.8 10^3/uL 10^3/ uL (0.2-0.9) Eos # (Auto) 0.0 10^3/uL 10^3/ uL (0.0-0.8) Baso # (Auto) 0.1 10^3/uL 10^3/ uL (0.0-0.1) Absolute Gran (aut o) Nucleated RBC % (a uto) 0 % % Nucleated RBCs # 0.0 /100WBC /100W BC Specimen Type Sample Site ABG pH ABG pCO2 ABG pO2 ABG HCO3 ABG O2 Saturation ABG Base Excess Dada Test A-a O2 Gradient Hematocrit Hgb O2 Saturation Carboxyhemoglobin Methemoglobin Total Hemoglobin Sodium Cancelled 133 mmol/L L mmol /L (136-145) Potassium Cancelled 5.3 mmol/L H mmol /L (3.5-5.1) Glucose Cancelled 58 mg/dL L mg/dL (65-115) Ionized Calcium O2 Delivery Device FiO2 Electric Meter Tester Helper ID Chloride Cancelled 98 mmol/L mmol/L (98-107) Carbon Dioxide Cancelled 22 mmol/L mmol/L (22-29) Anion Gap Cancelled 18.3 (5-19) BUN Cancelled 25 mg/dL H mg/dL (8-23) Creatinine Cancelled 0.9 mg/dL mg/dL (0.5-0.9) GFR Calculation Cancelled 63.7 mL/min L mL/ min (90-130) Calculated Osmolal ity Cancelled 278 mOsm/kg L mOs m/kg (285-295) Lactic Acid Lactic Acid (Sepsi s) Calcium Cancelled 7.4 mg/dL L mg/dL (8.5-10.5) Total Bilirubin Cancelled 1.0 mg/dL mg/dL (0.15-1.2) AST Cancelled 74 U/L H U/L (0-32) ALT Cancelled 72 U/L H U/L (0-33) Alkaline Phosphata se Cancelled 281 IU/L H IU/L (35-105) Creatine Kinase Cancelled 144 U/L U/L (26-192) Total Protein Cancelled 4.6 g/dL L g/dL (6.6-8.7) Albumin Cancelled 1.7 g/dL L g/dL (3.5-5.2) Globulin Cancelled 2.9 g/dL g/dL (1.3-4.6) Lipase Cancelled 7 U/L L U/L (13-60) Urine Color Urine Appearance Urine pH Ur Specific Gravit y Urine Protein Urine Glucose (UA) Urine Ketones Urine Blood Urine Nitrate Urine Bilirubin Urine Urobilinogen Ur Leukocyte Zuleyka ase Urine RBC Urine WBC Ur Squamous Epith Cells Ur Renal Epithelia l Cell Uric Acid Crystals Other Crystals Amorphous Sediment Urine Bacteria Coarse Granular Ca sts 09/18/21 09/18/21 20:29 20:45 WBC Corrected WBC RBC Hgb Hct MCV MCH MCHC RDW Plt Count MPV Gran % Neut % (Auto) Lymph % (Auto) [place] % (Auto) Eos % (Auto) Baso % (Auto) Neut # (Auto) Lymph # (Auto) [place] # (Auto) Eos # (Auto) Baso # (Auto) Absolute Gran (aut o) Nucleated RBC % (a uto) Nucleated RBCs # Specimen Type Sample Site ABG pH ABG pCO2 ABG pO2 ABG HCO3 ABG O2 Saturation ABG Base Excess Dada Test A-a O2 Gradient Hematocrit Hgb O2 Saturation Carboxyhemoglobin Methemoglobin Total Hemoglobin Sodium Potassium Glucose Ionized Calcium O2 Delivery Device FiO2 Electric Meter Tester Helper ID Chloride Carbon Dioxide Anion Gap BUN Creatinine GFR Calculation Calculated Osmolal ity Lactic Acid Lactic Acid (Sepsi s) 1.7 mmol/L mmol/L (0.5-2.2) Calcium Total Bilirubin AST ALT Alkaline Phosphata se Creatine Kinase Total Protein Albumin Globulin Lipase Urine Color Dark yellow (Yellow) Urine Appearance Clear (CLEAR) Urine pH 5 (5-7) Ur Specific Gravit y 1.020 (1.005-1.030) Urine Protein Trace (Negative) Urine Glucose (UA) Norm (Normal) Urine Ketones 1+ H (Negative) Urine Blood Neg (Negative) Urine Nitrate Negative (Negative) Urine Bilirubin 3+ H (Negative) Urine Urobilinogen 1 mg/dL H mg/dL (Negative) Ur Leukocyte Zuleyka ase Trace H (Negative) Urine RBC None /hpf /hpf (0-2) Urine WBC 5-10 /hpf H /hpf (0-5) Ur Squamous Epith Cells 0-4 /hpf H /hpf (0-5) Ur Renal Epithelia l Cell 2 /hpf /hpf Uric Acid Crystals 20 /hpf /hpf Other Crystals 5 /hpf /hpf Amorphous Sediment Not Reportable Urine Bacteria 2+ /hpf H /hpf (NONE) Coarse Granular Ca sts 3 /lpf /lpf Discharge Plan Discharge Patient Disposition: Admitted As Inpatient Admit Provider: Smitha Coleman Clinical Impression: Septic shock, Neuroendocrine carcinoma metastatic to liver, Dehydration Condition: Stable Coding Level of Care Code ED Jalousie Installer for Chg Fwd Exam Comprehensive Documented by User: Jose Antonio Lyon MD 09/18/21 22:50 HPI - Weakness General: Chief complaint: Weakness Stated complaint: NOT EATING HAS CANCER VERY WEAK Time Seen by Provider: 09/18/21 13:25 PFSH ED PFSH: Medical History (Updated 09/19/21 @ 00:23 by Smitha Coleman MD) Hip fracture Family History Father Cancer Social History Smoking and tobacco status: former smoker Number of children: 4 service: No History of recent travel: No Procedures Central Line Placement Right IJ: Time Out Performed: Yes Patient Placed on Monitor/Pulse Ox: Yes Prep: mask, gown and gloves Central Line Prep: Chlorhexidine scrub Amount of anesthesia used (mL): 5 Ultrasound Used for Placement: Yes Central Line Lumen Inserted: triple Post Procedure: sutured in place, good blood return, all ports aspirated, flushed, capped and sterile dressing applied Post Procedure X-Ray: tip of catheter in good position and no pneumothorax seen Patient Tolerated Procedure: well Complications: none Course Vital Signs: Vital signs: Vital Signs Temperature 98.1 F 09/19/21 07:32 Pulse Rate 82 09/19/21 07:32 Respiratory Rate 19 H 09/19/21 07:32 Blood Pressure 113/70 09/19/21 07:32 Pulse Oximetry 96 09/19/21 07:32 MDM - Weakness MDM Narrative: Medical decision making narrative: Patient presents here with generalized weakness decreased appetite and dehydration patient does have elevated white count and lactate with severely low blood pressures. Blood pressure repeat hemoglobin after fluids her lactate did improve. Did have to place a central line in place patient on 2 Levophed for blood pressure patient started on IV antibiotics I spoke to hospitalist will admit to the ICU. Lab Data: Labs: Lab Results 09/18/21 09/18/21 09/18/21 15:42 16:20 16:20 WBC Cancelled Corrected WBC Cancelled RBC Cancelled Hgb Cancelled Hct Cancelled MCV Cancelled MCH Cancelled MCHC Cancelled RDW Cancelled Plt Count Cancelled MPV Cancelled Gran % Cancelled Neut % (Auto) Cancelled Lymph % (Auto) Cancelled [place] % (Auto) Cancelled Eos % (Auto) Cancelled Baso % (Auto) Cancelled Neut # (Auto) Cancelled Lymph # (Auto) Cancelled [place] # (Auto) Cancelled Eos # (Auto) Cancelled Baso # (Auto) Cancelled Absolute Gran (aut o) Cancelled Nucleated RBC % (a uto) Cancelled Nucleated RBCs # Cancelled Specimen Type Arterial Sample Site Brachial, left ABG pH 7.37 (7.35-7.45) ABG pCO2 41.4 mmHg mmHg (35-45) ABG pO2 52.5 mmHg L mmHg (80.0-100.0) ABG HCO3 23.9 mmol/L mmol/ L (22-26) ABG O2 Saturation 86.7 ABG Base Excess -1.4 mmol/L mmol/ L (-2.0-2.0) Dada Test Pos A-a O2 Gradient 6.0 mmHg mmHg (5-10) Hematocrit 39.1 % % (37-47) Hgb O2 Saturation 85.3 % L % (95-100) Carboxyhemoglobin 0.8 %THgb %THgb (0.4-20.1) Methemoglobin 0.8 % % (0.4-1.5) Total Hemoglobin 12.8 g/dL g/dL (12-16) Sodium 131.0 mmol/L mmol /L (131-143) Potassium 4.3 mmol/L mmol/L (3.5-5.0) Glucose 68.0 mg/dL L mg/d L (70-115) Ionized Calcium 1.1 mmol/L mmol/L (1.1-1.4) O2 Delivery Device Room air FiO2 21.0 % % Electric Meter Tester Helper ID Monro Chloride Carbon Dioxide Anion Gap BUN Creatinine GFR Calculation Calculated Osmolal ity Lactic Acid 4.2 mmol/L H* mmo l/L (0.5-2.2) Lactic Acid (Sepsi s) Calcium Total Bilirubin AST ALT Alkaline Phosphata se Creatine Kinase Total Protein Albumin Globulin Lipase Urine Color Urine Appearance Urine pH Ur Specific Gravit y Urine Protein Urine Glucose (UA) Urine Ketones Urine Blood Urine Nitrate Urine Bilirubin Urine Urobilinogen Ur Leukocyte Zuleyka ase Urine RBC Urine WBC Ur Squamous Epith Cells Ur Renal Epithelia l Cell Uric Acid Crystals Other Crystals Amorphous Sediment Urine Bacteria Coarse Granular Ca sts 09/18/21 09/18/21 09/18/21 16:20 17:45 18:00 WBC 20.2 10^3/uL H 10 ^3/uL (4.0-10.0) Corrected WBC RBC 5.61 10^6/uL H 10 ^6/uL (4.1-5.3) Hgb 14.8 g/dL g/dL (11.5-15.3) Hct 45.1 % % (37.0-47.0) MCV 80.4 fl L fl (81-99) MCH 26.4 pg L pg (28.0-34.0) MCHC 32.8 g/dL g/dL (30.0-36.0) RDW 18.4 % H % (12.1-15.1) Plt Count 227 10^3/cmm 10^3 /cmm (130-400) MPV 10.7 fL H fL (7.4-10.4) Gran % Neut % (Auto) 81.8 % % Lymph % (Auto) 13.1 % % [place] % (Auto) 4.1 % % Eos % (Auto) 0.0 % % Baso % (Auto) 0.4 % % Neut # (Auto) 16.54 10^3/uL H 1 0^3/uL (1.8-7.7) Lymph # (Auto) 2.6 10^3/uL 10^3/ uL (0.8-4.8) [place] # (Auto) 0.8 10^3/uL 10^3/ uL (0.2-0.9) Eos # (Auto) 0.0 10^3/uL 10^3/ uL (0.0-0.8) Baso # (Auto) 0.1 10^3/uL 10^3/ uL (0.0-0.1) Absolute Gran (aut o) Nucleated RBC % (a uto) 0 % % Nucleated RBCs # 0.0 /100WBC /100W BC Specimen Type Sample Site ABG pH ABG pCO2 ABG pO2 ABG HCO3 ABG O2 Saturation ABG Base Excess Dada Test A-a O2 Gradient Hematocrit Hgb O2 Saturation Carboxyhemoglobin Methemoglobin Total Hemoglobin Sodium Cancelled 133 mmol/L L mmol /L (136-145) Potassium Cancelled 5.3 mmol/L H mmol /L (3.5-5.1) Glucose Cancelled 58 mg/dL L mg/dL (65-115) Ionized Calcium O2 Delivery Device FiO2 Electric Meter Tester Helper ID Chloride Cancelled 98 mmol/L mmol/L (98-107) Carbon Dioxide Cancelled 22 mmol/L mmol/L (22-29) Anion Gap Cancelled 18.3 (5-19) BUN Cancelled 25 mg/dL H mg/dL (8-23) Creatinine Cancelled 0.9 mg/dL mg/dL (0.5-0.9) GFR Calculation Cancelled 63.7 mL/min L mL/ min (90-130) Calculated Osmolal ity Cancelled 278 mOsm/kg L mOs m/kg (285-295) Lactic Acid Lactic Acid (Sepsi s) Calcium Cancelled 7.4 mg/dL L mg/dL (8.5-10.5) Total Bilirubin Cancelled 1.0 mg/dL mg/dL (0.15-1.2) AST Cancelled 74 U/L H U/L (0-32) ALT Cancelled 72 U/L H U/L (0-33) Alkaline Phosphata se Cancelled 281 IU/L H IU/L (35-105) Creatine Kinase Cancelled 144 U/L U/L (26-192) Total Protein Cancelled 4.6 g/dL L g/dL (6.6-8.7) Albumin Cancelled 1.7 g/dL L g/dL (3.5-5.2) Globulin Cancelled 2.9 g/dL g/dL (1.3-4.6) Lipase Cancelled 7 U/L L U/L (13-60) Urine Color Urine Appearance Urine pH Ur Specific Gravit y Urine Protein Urine Glucose (UA) Urine Ketones Urine Blood Urine Nitrate Urine Bilirubin Urine Urobilinogen Ur Leukocyte Zuleyka ase Urine RBC Urine WBC Ur Squamous Epith Cells Ur Renal Epithelia l Cell Uric Acid Crystals Other Crystals Amorphous Sediment Urine Bacteria Coarse Granular Ca sts 09/18/21 09/18/21 20:29 20:45 WBC Corrected WBC RBC Hgb Hct MCV MCH MCHC RDW Plt Count MPV Gran % Neut % (Auto) Lymph % (Auto) [place] % (Auto) Eos % (Auto) Baso % (Auto) Neut # (Auto) Lymph # (Auto) [place] # (Auto) Eos # (Auto) Baso # (Auto) Absolute Gran (aut o) Nucleated RBC % (a uto) Nucleated RBCs # Specimen Type Sample Site ABG pH ABG pCO2 ABG pO2 ABG HCO3 ABG O2 Saturation ABG Base Excess Dada Test A-a O2 Gradient Hematocrit Hgb O2 Saturation Carboxyhemoglobin Methemoglobin Total Hemoglobin Sodium Potassium Glucose Ionized Calcium O2 Delivery Device FiO2 Electric Meter Tester Helper ID Chloride Carbon Dioxide Anion Gap BUN Creatinine GFR Calculation Calculated Osmolal ity Lactic Acid Lactic Acid (Sepsi s) 1.7 mmol/L mmol/L (0.5-2.2) Calcium Total Bilirubin AST ALT Alkaline Phosphata se Creatine Kinase Total Protein Albumin Globulin Lipase Urine Color Dark yellow (Yellow) Urine Appearance Clear (CLEAR) Urine pH 5 (5-7) Ur Specific Gravit y 1.020 (1.005-1.030) Urine Protein Trace (Negative) Urine Glucose (UA) Norm (Normal) Urine Ketones 1+ H (Negative) Urine Blood Neg (Negative) Urine Nitrate Negative (Negative) Urine Bilirubin 3+ H (Negative) Urine Urobilinogen 1 mg/dL H mg/dL (Negative) Ur Leukocyte Zuleyka ase Trace H (Negative) Urine RBC None /hpf /hpf (0-2) Urine WBC 5-10 /hpf H /hpf (0-5) Ur Squamous Epith Cells 0-4 /hpf H /hpf (0-5) Ur Renal Epithelia l Cell 2 /hpf /hpf Uric Acid Crystals 20 /hpf /hpf Other Crystals 5 /hpf /hpf Amorphous Sediment Not Reportable Urine Bacteria 2+ /hpf H /hpf (NONE) Coarse Granular Ca sts 3 /lpf /lpf Critical Care Time Critical Care Time: Critical Care Time: Yes Total Critical Care Time: 35 Attestation: The high probability of a clinically significant, sudden or life threatening deterioration of the patient's [] system(s) required my full and direct attention, intervention and personal management. The critical care time is as shown. This time is in addition to time spent performing any reported procedures but includes the following: [x] Data and vital sign review and interpretation [x] Patient assessment, examination and intervention [x] Documentation [x] Medication orders and management Discharge Plan Discharge Patient Disposition: Admitted As Inpatient Admit Provider: Smitha Coleman Clinical Impression: Septic shock, Neuroendocrine carcinoma metastatic to liver, Dehydration Condition: Stable Coding Level of Care Code ED Jalousie Installer for Chg Fwd Exam Comprehensive
[2021-09-18] MEDS: sodium chloride 0.9% 1,000 ML 999 ML IV ×2 (14:41→16:36)
[2021-09-18] MEDS: ondansetron 2 mg/ML SDV 2 mL 4 MG IVP ×2 (14:45→21:51)
[2021-09-18 15:56] LABS: ABG PCO2 41.4 mmHg (35-45); ABG PH Result 7.37 (7.35-7.45); Arterial Blood Gas Hematocrit 39.1 % (37-47); Base Excess ABG -1.4 mmol/L (-2.0-2.0); Blood Gas Allen Test Pos; Blood Gas Operator Identificat MONRO; Blood Gas Sample Site Brachial, left; Blood Gas Sample Type Arterial; Carboxyhemoglobin 0.8 %THgb (0.4-20.1); HCO3 ABG 23.9 mmol/L (22-26); HGB O2 Sat 85.3 % (95-100); Ionized Calcium Level - ABG 1.1 mmol/L (1.1-1.4); Methemoglobin 0.8 % (0.4-1.5); Oxygen Saturation ABG 86.7; PO2 ABG 52.5 mmHg (80.0-100.0); Potassium Level - ABG 4.3 mmol/L (3.5-5.0); Total Hemoglobin 12.8 g/dL (12-16)
[2021-09-18 15:57] LABS: Oxygen Device ROOM AIR
[2021-09-18 17:27] LABS: Lactic Sepsis W/Reflex 4.2 mmol/L (0.5-2.2)
--- NOTE | 2021-09-18 17:30 | XRR_ITS ---
PROCEDURE INFORMATION: Exam: XR Chest Exam date and time: 09/18/2021 5:30 PM Age: 60 years old Clinical indication: Cough; Additional info: Dyspnea/cough TECHNIQUE: Imaging protocol: XR of the chest. Views: 1 view. COMPARISON: [place] [id number] 06/16/2021 9:43 AM FINDINGS: Lungs: Bibasilar atelectasis versus infiltrate. Pleural spaces: Small bilateral pleural effusions. Heart/Mediastinum: Unremarkable. No cardiomegaly. Bones/joints: Unremarkable. XR/XR chest 1V portable [id number] IMPRESSION: 1. Small bilateral pleural effusions. 2. Bibasilar atelectasis versus infiltrate. Radiation Dose CTDIVOL = (mGy): DLP = (mGy-cm)
[2021-09-18 18:07] LABS: Albumin Level 1.7 g/dL (3.5-5.2); Alkaline Phosphatase 281 IU/L (35-105); Blood Urea Nitrogen 25 mg/dL (8-23); Calcium 7.4 mg/dL (8.5-10.5); Carbon Dioxide 22 mmol/L (22-29); Chloride 98 mmol/L (98-107); Globulin 2.9 g/dL (1.3-4.6); Glomerular Filtration Rate 63.7 mL/min (90-130); Glucose 58 mg/dL (65-115); Lipase 7 U/L (13-60); Osmolality Calculated 278 mOsm/kg (285-295); Sodium 133 mmol/L (136-145); Total Protein 4.6 g/dL (6.6-8.7)
[2021-09-18 18:08] LABS: Alanine Aminotransferase 72 U/L (0-33); Anion Gap 18.3 (5-19); Aspartate Amino Transferase 74 U/L (0-32); Creatine Phosphokinase 144 U/L (26-192); Potassium 5.3 mmol/L (3.5-5.1)
[2021-09-18 18:08] LABS: Basophils # 0.1 10^3/uL (0.0-0.1); Basophils % 0.4 %; Hematocrit 45.1 % (37.0-47.0); Hemoglobin 14.8 g/dL (11.5-15.3); Lymphocytes # 2.6 10^3/uL (0.8-4.8); Lymphocytes % 13.1 %; Mean Corpuscular HGB Conc 32.8 g/dL (30.0-36.0); Mean Corpuscular Hemoglobin 26.4 pg (28.0-34.0); Mean Corpuscular Volume 80.4 fl (81-99); Mean Platelet Volume 10.7 fL (7.4-10.4); Monocytes # 0.8 10^3/uL (0.2-0.9); Monocytes % 4.1 %; Neutrophils # 16.54 10^3/uL (1.8-7.7); Neutrophils % 81.8 %; Nucleated Red Blood Cells % 0 %; Platelet Count 227 10^3/cmm (130-400); Red Blood Count 5.61 10^6/uL (4.1-5.3); Red Cell Distribution Width 18.4 % (12.1-15.1); White Blood Count 20.2 10^3/uL (4.0-10.0)
[2021-09-18 18:12] LABS: Reflex Lactate Order REFLEX LACTIC ORDERD
[2021-09-18] MEDS: piperacillin-tazobactam 3.375 GM in sodium chloride 0.9% (plus) 50 ML IV (21:00)
[2021-09-18 21:08] LABS: Lactic Acid level (Lactate) 1.7 mmol/L (0.5-2.2)
[2021-09-18 21:38] LABS: Protein Urine Trace (Negative); Urine Appearance Clear (CLEAR); Urine Color Dark Yellow (Yellow); pH Urine 5 (5-7)
[2021-09-18 21:39] LABS: Add Urine Microscopic? YES; Bilirubin Urine 3+ (Negative); Blood Urine Neg (Negative); Glucose Urine UA Norm (Normal); Ketones Urine 1+ (Negative); Leukocyte Esterase Urine Trace (Negative); Nitrate Urine Negative (Negative); Squamous Epithelial Cell Urine 0-4 /hpf (0-5); Urobilinogen Urine 1 mg/dL (Negative)
[2021-09-18 21:40] LABS: Add Urine Culture? Yes; Bacteria Urine 2+ /hpf; Coarse Granular Casts Urine 3 /lpf; Other Crystals Urine 5 /hpf; Renal Epithelial Cells Urine 2 /hpf; Uric Acid Crystals Urine 20 /hpf
--- NOTE | 2021-09-18 22:25 | XRR_ITS ---
PROCEDURE INFORMATION: Exam: XR Chest Exam date and time: 09/18/2021 10:25 PM Age: 60 years old Clinical indication: Device placement; Other: Central line placement TECHNIQUE: Imaging protocol: XR of the chest. Views: 1 view. COMPARISON: CR (CHEST, ) 09/18/2021 5:56 PM FINDINGS: Tubes, catheters and devices: Right central venous catheter tip approaching the atrial caval junction. Lungs: Bibasilar atelectasis versus infiltrate. Pleural spaces: Small bilateral pleural effusions. Heart/Mediastinum: Unremarkable. No cardiomegaly. Bones/joints: Unremarkable. XR/XR chest 1V portable [id number] IMPRESSION: 1. Right central venous catheter tip approaching the atrial caval junction. 2. Small bilateral pleural effusions. 3. Bibasilar atelectasis versus infiltrate. Radiation Dose CTDIVOL = (mGy): DLP = (mGy-cm)
[2021-09-18] MEDS: vancomycin 1,000 MG in sodium chloride 0.9% 250 ML 250 MG IV (22:40)
--- NOTE | 2021-09-18 23:43 | PC.NURSE ---
Pt transferred from ER to the ICU at 2317 via stretcher. Pt transferred to bed and tolerated well. Pt complaining of weakness and SOB on exertion. Pt afebrile. Pt levophed running @ 5mcg/min on arrival but was programed in the MAR as 1.31 mcg/min. Rate was changed in the MAR to current rate of 5 mcg/min. Pt belongings are at bedside.
[2021-09-19] VITALS (64 sets, daily range): BP systolic 82–163; BP diastolic 51–109; PULSE 77–100; RESP 8–23; TEMP 36.6–36.7; O2SAT 87–99
[2021-09-19 00:22] LABS: D Dimer 3.82 ug/mIFEU (0-0.59)
--- NOTE | 2021-09-19 00:23 | P.HP_ITS ---
Providers/Chief Complaint Admitting Physician: Smitha Coleman MD Primary Care Provider: Mt Collado MD Chief Complaint: NOT EATING HAS CANCER VERY WEAK History of Present Illness Eva Johnson is a 60 year old female recently diagnosed neuroendocrine tumor with hepatic metastasis, has been started on sandostain, taken 2 doses thus far p/w increasing generalized weakness, inability to eat due to poor appetite and also nausea and vomiting. Denies odynophagia or dysphagia. Estimates symptoms have been ongoing for 2 weeks. On arrival at ER, noted to be hypotensive with SBP 60s with hyperkalemia, hypoglycemia, leukocytosis and new 02 requirement. Denies any recent fever, chest pain, dyspnea, abdominal pain. Nausea, vomiting+. states diarrhea is improved over baseline. No bleeding noted at any site, no hematemesis or brianna. Review of Systems General: Reports: 10 or more systems reviewed and unremarkable except in HPI and below Const: Denies: fever(s), chills or body aches Eyes: Denies: change in vision, blurry vision or photophobia ENMT: Reports: hoarseness; Denies: throat pain, enlarged tonsils, odynophagia or nasal congestion Card: Denies: chest pain, palpitations, irregular heart rhythm, edema, swelling of feet/ankles, lightheadedness, pre-syncope, dyspnea on exertion or orthopnea Resp: Denies: dyspnea, productive cough, non-productive cough, wheezing, stridor, pain on inspiration, change in phlegm color, hemoptysis or chest congestion GI: Denies: abdominal pain, nausea, vomiting, hematemesis, coffee ground emesis, dysphagia, heartburn, diarrhea, constipation, GI cramping, change in stool character, hematochezia or melena : Denies: flank pain, difficulty voiding, dysuria, urinary frequency, urinary urgency, urinary hesitancy or hematuria Musc: Denies: neck pain, back pain, extremity pain, joint swelling, joint warmth or deformity Neuro: Denies: headache(s), numbness in extremities, weakness in extremities, sensory changes, difficulty walking, frequent falls, dizziness, vertigo, behavioral changes, Slurred speech present or seizure-like activity Psych: Denies: anxiety, depression, suicidal ideation or homicidal ideation Endo: Denies: polyuria, polydipsia, tired all the time, cold intolerance or hot flashes Heraclio/Lymph: Denies: easy bruising or easy bleeding Medications/Allergies Home Medications Medication Instructions Recorded Confirmed Last Taken Type pantoprazole 40 mg tablet,delayed 40 mg PO DAILY 06/20/21 07/06/21 06/27/21 History release Allergies Allergy/AdvReac Type Severity Reaction Status Date / Time No Known Allergies Allergy Verified 07/06/21 09:09 PFSH Acute PFSH: Medical History (Updated 09/19/21 @ 00:23 by Smitha Coleman MD) Hip fracture Family History Father Cancer Social History Smoking and tobacco status: former smoker Number of children: 4 service: No History of recent travel: No Vitals/I&O/Wt Last Vital Signs Temp 97.6 F 09/18/21 23:30 Pulse 97 09/19/21 00:00 Resp 23 H 09/19/21 00:00 BP 87/55 09/19/21 00:00 Pulse Ox 96 09/19/21 00:00 09/18/21 09/18/21 09/19/21 14:59 22:59 06:59 Intake Total 1000 / 1000 1303.333 / 2303.333 Balance 1000 / 1000 1303.333 / 2303.333 Weight last 48 hrs Weight 46.992 kg Weight 43.545 kg Physical Exam Narrative: EXAM NARRATIVE: General: Appears weak, cachetic, chronically ill HEENT: PERRLA, pupils bilaterally equal and reactive, pallors not present, on supplemental 02 4l/min via NC Chest: Normal vesicular breath sounds, no added sounds, reduced air entry at B/L lung bases CVS: S1-S2 regular, no murmurs, no tachycardia, no gallops, no rubs Abdomen: Soft, nontender, no organomegaly, bowel sounds present Neuro: No focal deficits, no facial deformity, AO x3, power 5/5 in all limbs Extremities: clinically appearing to be dehydrated with dry coated tongue, poor skin turgor Data : 09/19/21 01:35 09/19/21 01:35 Micro: Microbiology 09/18/21 20:29 Blood Culture - Preliminary Blood SPECIMEN COLLECTED 09/18/21 20:15 Blood Culture - Preliminary Blood SPECIMEN COLLECTED A&P Assessment and plan (1) Neuroendocrine carcinoma metastatic to liver: recently diagnosed 06/2021 on sandostatin as outpatient, taken 2 doses thus far Status: Acute (2) Septic shock: meets sepssis criteria with leukocytosis, elevated lactate, tachypnea and hypotension started on levophed in the ER and received 2L IVF bolus Blood cx taken priro to initiation of abx UA with trace LA, negative nitrate, bacteriuria CXR no gross consolidation Started on empiric zosyn and vancomycin which will be continued Hypoglycemia on labs, may be related to poor po intake, d5NS @ 100cc/hr , check TSH Recheck K with hydration CTA chest to look for PE given elevated D dimer, new hypoxia, additionally abdo men/pelvis to evaluate for cirrhosis, ascites. Concern additionally for carcinoid crisis given persisting hypotension in spite of levophed and fluids, elevated 5HIAA levels on urine at diagnosis. Check serum serotonin levels. Avoid B adrenergic pressors, discontinue levophed, change to phenylephrine start octreotide infusion @50mcg per hr Status: Acute Attestations Medical Necessity Statement*: >2midnight anticipated for above defined care Critical Care Time: The high probability of a clinically significant, sudden or life threatening deterioration of the patient's [circulatory, respiratory, endocrine] system(s) required my full and direct attention, intervention and personal management. The critical care time is as shown. This time is in addition to time spent performing any reported procedures but includes the following: [x] Data and vital sign review and interpretation [x] Patient assessment, examination and intervention [x] Documentation [x] Medication orders and management Critical Care Time (min): 45 Coding Level of Care Code Acute [employer] Technician for [facility] Fwd Diagnoses Neuroendocrine carcinoma metastatic to liver C7A.8; C7B.8 Septic shock A41.9; R65.21
--- NOTE | 2021-09-19 00:25 | CTR_ITS ---
PROCEDURE INFORMATION: Exam: CTA Chest With Contrast Exam date and time: 09/19/2021 12:25 AM Age: 60 years old Clinical indication: Condition or disease; Cancer; Secondary or metastatic site; Other: Elevated d-dimer; Primary cancer: Neuroendocrine tumor with liver mets; Additional info: Sepsis, hypotension, neuroendocrine tumor with liver mets, elevated d dimer, new TECHNIQUE: Imaging protocol: Computed tomographic angiography of the chest with contrast. 3D rendering (Not supervised by radiologist): MIP and/or 3D reconstructed images were created by the technologist. Radiation optimization: All CT scans at this facility use at least one of these dose optimization techniques: automated exposure control; mA and/or kV adjustment per patient size (includes targeted exams where dose is matched to clinical indication); or iterative reconstruction. Contrast material: OMNI 350; Contrast volume: 75 ml; Contrast route: INTRAVENOUS (IV); COMPARISON: CR (CHEST, ) 09/18/2021 10:28 PM RADIATION DOSE METRICS: Total DLP (mGy-cm): 879.54 FINDINGS: Pulmonary arteries: No pulmonary embolism. Aorta: Unremarkable. No aortic aneurysm. No aortic dissection. Lungs: Unremarkable. No consolidation. No masses. Pleural spaces: Large bilateral pleural effusions. Heart: Unremarkable. No cardiomegaly. No pericardial effusion. Lymph nodes: Unremarkable. No enlarged lymph nodes. Bones/joints: Hyperdense bone lesions are present at T9, T11 and T12, suspicious for metastatic disease. Soft tissues: Unremarkable. Other findings: Mild emphysema. IMPRESSION: 1. No pulmonary embolism. 2. Large bilateral pleural effusions. 3. Mild emphysema. PROCEDURE INFORMATION: Exam: CT Abdomen And Pelvis With Contrast Exam date and time: 09/19/2021 12:25 AM Age: 60 years old Clinical indication: Condition or disease; Cancer; Secondary or metastatic site; Other: Elevated d-dimer; Primary cancer: Neuroendocrine tumor with liver mets; Additional info: Sepsis, hypotension, neuroendocrine tumor with liver mets, elevated d dimer, new TECHNIQUE: Imaging protocol: Computed tomography of the abdomen and pelvis with contrast. Radiation optimization: All CT scans at this facility use at least one of these dose optimization techniques: automated exposure control; mA and/or kV adjustment per patient size (includes targeted exams where dose is matched to clinical indication); or iterative reconstruction. Contrast material: OMNI 350; Contrast volume: 75 ml; Contrast route: INTRAVENOUS (IV); COMPARISON: CR (CHEST, ) 09/18/2021 10:28 PM RADIATION DOSE METRICS: Total DLP (mGy-cm): 879.54 FINDINGS: Lungs: The lung bases are clear. No effusion Liver: Innumerable hepatic metastases. Gallbladder and bile ducts: Gallbladder is normal. Pancreas: Pancreas is normal. Spleen: Spleen is normal. Adrenal glands: Adrenals are normal. Kidneys and ureters: Kidneys are normal. Stomach and bowel: Diffuse colon wall thickening which may be secondary to colitis or the presence of ascites and edema. Appendix: No evidence of appendicitis. Intraperitoneal space: There is a moderate amount of ascites . Vasculature: There is mild atherosclerotic disease. Lymph nodes: Unremarkable. No enlarged lymph nodes. Urinary bladder: Unremarkable as visualized. Reproductive: Unremarkable as visualized. Bones/joints: Gamma nail in the left hip. Soft tissues: There is anasarca. CT/CT angio chest w abd pel w con IMPRESSION: 1. Innumerable hepatic metastases. 2. There is a moderate amount of ascites . 3. Diffuse colon wall thickening which may be secondary to colitis or the presence of ascites and edema. Radiation Dose CTDIVOL = (mGy): DLP = 879.54~879.54 (mGy-cm)
[2021-09-19] MEDS: enoxaparin 40 mg/0.4 mL Syringe SUBCUT (00:35)
[2021-09-19] MEDS: dextrose 5%-sod chloride 0.9% 1,000 ML 100 ML IV (00:35)
[2021-09-19] MEDS: dextrose 50% syringe 50 mL IVP (00:36)
[2021-09-19 00:43] LABS: Influenza A by IFA Negative (Negative); Influenza B by IFA Negative (Negative)
[2021-09-19] MEDS: octreotide 500 MCG in sodium chloride 0.9% (100 ml) 100 ML 10.1 MCG IV ×3 (01:11→21:34)
[2021-09-19] MEDS: phenylephrine inj 25 MG in sodium chloride 0.9% 250 ML 24.24 MG IV ×2 (01:12→15:53)
[2021-09-19 01:55] LABS: Basophils % 0.2 %; Hematocrit 35.9 % (37.0-47.0); Hemoglobin 12.2 g/dL (11.5-15.3); Lymphocytes # 2.9 10^3/uL (0.8-4.8); Lymphocytes % 16.7 %; Mean Corpuscular Hemoglobin 26.6 pg (28.0-34.0); Mean Corpuscular Volume 78.2 fl (81-99); Mean Platelet Volume 11.4 fL (7.4-10.4); Monocytes # 1.1 10^3/uL (0.2-0.9); Monocytes % 6.1 %; Neutrophils # 13.07 10^3/uL (1.8-7.7); Neutrophils % 76.3 %; Nucleated Red Blood Cells % 0 %; Platelet Count 250 10^3/cmm (130-400); Red Blood Count 4.59 10^6/uL (4.1-5.3); Red Cell Distribution Width 16.9 % (12.1-15.1); White Blood Count 17.1 10^3/uL (4.0-10.0)
[2021-09-19 02:01] LABS: Alanine Aminotransferase 64 U/L (0-33); Albumin Level 1.6 g/dL (3.5-5.2); Alkaline Phosphatase 241 IU/L (35-105); Anion Gap 15.8 (5-19); Aspartate Amino Transferase 115 U/L (0-32); Blood Urea Nitrogen 27 mg/dL (8-23); Calcium 6.5 mg/dL (8.5-10.5); Carbon Dioxide 19 mmol/L (22-29); Chloride 101 mmol/L (98-107); Glomerular Filtration Rate 56.4 mL/min (90-130); Glucose 174 mg/dL (65-115); Osmolality Calculated 281 mOsm/kg (285-295); Potassium 4.8 mmol/L (3.5-5.1); Sodium 131 mmol/L (136-145); Total Bilirubin 0.9 mg/dL (0.15-1.2); Total Protein 3.6 g/dL (6.6-8.7)
[2021-09-19] MEDS: iohexol 350 mg/mL 100 mL Btl IV (02:37)
[2021-09-19 02:45] LABS: Glucose Point of Care 60 mg/dL (70-110)
[2021-09-19] MEDS: piperacillin-tazobactam 3.375 GM in sodium chloride 0.9% (plus) 50 ML IV ×3 (02:56→17:38)
--- NOTE | 2021-09-19 04:04 | PC.NURSE ---
Shift Note Frequent safety and comfort rounds continue. Pt repositioned as requested. Orders and nursing care completed as indicated. Patient monitored for response to intervention and treatment. Pt transfered to SD at 0215 via bed. Pt tolerated well. Education provided includes pain management. Patient verbalized understanding.
[2021-09-19] MEDS: ibuprofen 200 mg Tablet 400 MG PO (06:00)
--- NOTE | 2021-09-19 06:24 | USCV_ITS ---
Eva Johnson Age: 60 Gender: F : 1960 Exam Date: 09/19/2021 11:25 Ordering Phys: Smitha Coleman MD Technologist: DIANA Exam Location: [facility] Indication: ESTIMATED EF BP: / HR: Rhythm: Sinus Technical Quality: MEASUREMENTS (Male / Female) Normal Values FINDINGS Left Ventricle Normal LV size and ejection fraction of 55%. No gross wall motion abnormalities noted. Right Ventricle Normal right ventricular size and systolic function. Right Atrium Possibly of normal size. Left Atrium Possibly of normal size Mitral Valve No gross abnormalities noted Aortic Valve Not visualized . Tricuspid Valve No gross abnormalities noted Pulmonic Valve Pulmonic valve not well visualized. Pericardium No significant pericardial effusion. Echo-free space was noted laterally Aorta CONCLUSIONS Normal LV size and ejection fraction of 55%. No gross wall motion abnormalities noted. Normal cardiac chamber sizes No previous study is available for comparison. Possible large exudative left-sided pleural effusion. Dr Martin Yu MD FACC (Electronically Signed) Final Date: 20 September 2021 17:10 S
[2021-09-19] MEDS: FUROsemide 10 mg/mL SDV 2mL 20 MG IVP (06:59)
[2021-09-19 07:19] LABS: Glucose Point of Care 167 mg/dL (70-110)
[2021-09-19] MEDS: pantoprazole DR 40 mg Tablet PO ×2 (08:40→17:39)
--- NOTE | 2021-09-19 08:43 | PC.PHAR ---
pt states she takes care of her own medications-pt brought in some of her medication bottles-pt states she thinks she takes cholestyramine rx filled on 08/31/21 30d/s-pt states she took kcl for 7 days a while ago and states she still has some to take prn or as directed by oncology clinic rx last filled 07/10/21 -notes are made in the pharmacy comments
[2021-09-19 14:50] LABS: Coronavirus Test Green County Not Detected
--- NOTE | 2021-09-19 15:54 | P.PN_ITS ---
Subjective Subjective: Interval history: On request of the family did speak with the transfer line at [facility], they do not have any ICU beds at this point, and they are not taking patients on waiting list, I did update Mr. Iyer, requested ICU nurse to get in touch with pharmacy to appropriately titrate octreotide drip since we do not have a protocol yet Patient is still requiring phenylephrine and octreotide map 61 Extremely lethargic and fatigued No active diarrhea Vitals/I&O/Wt Last Vital Signs Temp 98.1 F 09/19/21 07:32 Pulse 82 09/19/21 12:00 Resp 19 H 09/19/21 12:00 BP 113/70 09/19/21 12:00 Pulse Ox 96 09/19/21 12:00 09/19/21 09/19/21 09/19/21 06:59 14:59 22:59 Intake Total 2185.799 / 3185.799 353.5 / 353.5 Balance 2185.799 / 3185.799 353.5 / 353.5 Weight last 48 hrs Weight 46.992 kg Weight 43.545 kg Physical Exam Narrative: EXAM NARRATIVE: elderly female Extremely fatigued and lethargic Looks dehydrated positive third spacing Bilateral lower extremity trace edema Saturating well on 2 L nasal cannula Abdomen is soft EOMI, PERRLA Nonfocal neuro exam Patient is not able to bear weight, proximal muscle weakness noted as well Data : 09/19/21 01:35 09/19/21 01:35 Micro: Microbiology 09/19/21 11:12 Bacterial Antigens - Final Urine,Clean Catch 09/18/21 20:29 Blood Culture - Preliminary Blood SPECIMEN COLLECTED 09/18/21 20:15 Blood Culture - Preliminary Blood SPECIMEN COLLECTED A&P Assessment and plan (1) Septic shock: Status: Acute (2) Dehydration: Status: Acute (3) Neuroendocrine carcinoma metastatic to liver: Status: Acute (4) Liver mass: Status: Acute Additional A&P Information Patient was diagnosed with neuroendocrine tumor in July 11, status post 2 cycles of Sandostatin, family requested transfer to [facility] however today they do not have any ICU beds, I did update her today PT evaluation Discontinue vancomycin CT abdomen showing colitis/anasarca appearance of: Continue Zosyn Continue octreotide for now along phenylephrine I would use methylprednisolone 40 mg every 12h IV push Will request ammonia level Will request speech evaluation along dietary consult Full code DVT prophylaxis on board I will continue regular diet for now, would avoid cheese products, yogurt. Protein calorie malnourishment, low BMI: Albumin 1.6, will give her 2 doses of albumin today Attestations Medical Necessity Statement*: Continue ICU management Time Spent in Patient Care: 16 - 35 minutes Coding Level of Care Code Acute Complex Human Resources Manager for [facility] Fwd Diagnoses Septic shock A41.9; R65.21 Dehydration E86.0 Neuroendocrine carcinoma metastatic to liver C7A.8; C7B.8 Liver mass R16.0
[2021-09-19] MEDS: albumin 12.5 GM/250 ML VIAL IV (16:26)
--- NOTE | 2021-09-19 18:29 | PC.NURSE ---
Shift Note Frequent safety and comfort rounds continue. Orders and/or nursing care completed as indicated. Patient monitored for response to intervention and treatment(s). Education provided includes[]. Patient and/or junior sales representative [verbalize understanding]. Pt has rested in bed with her eyes closed. Urbina was placed this morning. Still on Abhi and Octreotide. Dr Welsh at [facility] was notified of her admission. It was decided between family and Dr Welsh to seek transfer to [facility]. They provided the admissions number for their oncology floor it is . Dr Lucero called to request a bed and they have no availability and will continue to try every day for open bed. Her daughter and both were updated throughout the shift. Covid PCR came back negative. Pt has drank apple juice and water. Will continue to monitor.
[2021-09-20] VITALS (33 sets, daily range): BP systolic 78–100; BP diastolic 51–67; PULSE 75–87; RESP 9–19; TEMP 36.4; O2SAT 86–98
[2021-09-20] MEDS: enoxaparin 40 mg/0.4 mL Syringe SUBCUT (00:05)
[2021-09-20] MEDS: piperacillin-tazobactam 3.375 GM in sodium chloride 0.9% (plus) 50 ML IV ×2 (04:11→11:57)
[2021-09-20] MEDS: albumin 12.5 GM/250 ML VIAL IV (04:23)
[2021-09-20 05:33] LABS: Basophils % 0.2 %; Hematocrit 35.7 % (37.0-47.0); Hemoglobin 12.2 g/dL (11.5-15.3); Lymphocytes # 1.7 10^3/uL (0.8-4.8); Lymphocytes % 9.7 %; Mean Corpuscular HGB Conc 34.2 g/dL (30.0-36.0); Mean Corpuscular Hemoglobin 26.5 pg (28.0-34.0); Mean Corpuscular Volume 77.4 fl (81-99); Mean Platelet Volume 11.1 fL (7.4-10.4); Monocytes % 5.6 %; Neutrophils # 14.59 10^3/uL (1.8-7.7); Neutrophils % 83.5 %; Nucleated Red Blood Cells % 0 %; Platelet Count 237 10^3/cmm (130-400); Red Blood Count 4.61 10^6/uL (4.1-5.3); Red Cell Distribution Width 17.4 % (12.1-15.1); White Blood Count 17.5 10^3/uL (4.0-10.0)
--- NOTE | 2021-09-20 05:34 | PC.NURSE ---
Shift Note Frequent safety and comfort rounds continue. Pt turned q 2 hours. Pt very weak and drowsy. Orders and nursing care completed as indicated. Patient monitored for response to intervention and treatment. Education provided includes oxygen safety. Patient verbalized understanding but needs reinforcement.
[2021-09-20 05:55] LABS: Alanine Aminotransferase 71 U/L (0-33); Albumin Level 1.8 g/dL (3.5-5.2); Alkaline Phosphatase 234 IU/L (35-105); Anion Gap 15.1 (5-19); Aspartate Amino Transferase 203 U/L (0-32); Blood Urea Nitrogen 31 mg/dL (8-23); Calcium 6.8 mg/dL (8.5-10.5); Carbon Dioxide 22 mmol/L (22-29); Chloride 104 mmol/L (98-107); Globulin 2.3 g/dL (1.3-4.6); Glomerular Filtration Rate 50.5 mL/min (90-130); Glucose 80 mg/dL (65-115); Osmolality Calculated 290 mOsm/kg (285-295); Potassium 4.1 mmol/L (3.5-5.1); Sodium 137 mmol/L (136-145); Total Bilirubin 1.3 mg/dL (0.15-1.2); Total Protein 4.1 g/dL (6.6-8.7)
[2021-09-20] MEDS: octreotide 500 MCG in sodium chloride 0.9% (100 ml) 100 ML 10.1 MCG IV ×2 (07:03→15:06)
[2021-09-20] MEDS: phenylephrine inj 25 MG in sodium chloride 0.9% 250 ML 30.3 MG IV (07:04)
[2021-09-20] MEDS: ondansetron 2 mg/ML SDV 2 mL 4 MG IVP ×2 (08:38→13:41)
[2021-09-20] MEDS: pantoprazole DR 40 mg Tablet PO (08:38)
--- NOTE | 2021-09-20 10:22 | PC.CHAP ---
Pastoral Care Encounter/Spiritual Assessment Type of Contact [] Declined outreach representative visit [] Patient/Family/Request visit [] Outpatient visit [] Follow-up visit [] Physician referral [] Code/Alert [x] Routine visit [] Staff referral [] Actively dying [] Patient sleeping [] Family support [] [] Out of room [] Palliative care [] [] Receiving care in room [] Pre-surgical visit [] Trauma [] Long length of stay [x] ICU visit [] Other: Relational/Emotional Strength [] Patient feels connected with others/family/visitors/staff [] Distress [] Loneliness/isolation [] Abandonment Spirituality of Patient [] Person of Nichole [] Attends Sabianism of their Nichole [] Believes in Prayer [] Reads Bible or Episcopalian materials [] There are Spiritual issues to be addressed Snow Groomer Interventions [x] Prayer [x] Active listening [x] Non-anxious presence [x] Spiritual/emotional support [] Crisis/trauma care [] Spiritual counseling [] Bereavement support [] Provided bereavement packet [] Provided Bible/devotional materials [] Provided toy/stuffed animal, coloring book to patient or family member [] Provided Communion [] Anointing/[place] [] Salvation [x] Completed spiritual assessment [] Other: Impact on Illness or Injury [] Angry [] Fearful [] Anxious [] Often cries [] Exhaustion [] Unable to work [] Unable to attend episcopal [] Unable to walk/stand [] Unable to read [] Unable to drive [] Unable to eat/drink [] Unable to sleep [] Unable to be with family [] Patient intubated [] Other: Summary patient attempting to eat... working on getting stronger Time spent with patient 5 min
--- NOTE | 2021-09-20 12:46 | P.TS_ITS ---
Transfer Summary Providers Date of Admission: 09/18/21 22:31 Date of Discharge: 09/20/21 Attending Provider at Admission: Smitha Coleman MD Attending Provider at Transfer: Kirk Lucero MD Primary Care Provider: Mt Collado MD Anticipated Date of Transfer: Anticipated date of transfer: 09/20/21 Receiving Facility & Provider: Receiving Provider: [] Receiving facility: [] Diagnoses at Discharge Discharge Diagnosis (1) Septic shock: Status: Acute (2) Dehydration: Status: Acute (3) Neuroendocrine carcinoma metastatic to liver: Status: Acute (4) Liver mass: Status: Acute Reason for Visit Reason for Visit: NOT EATING HAS CANCER VERY WEAK Hospital Course Hospital Course History of Present Illness by Dr Coleman Eva Johnson is a 60 year old female recently diagnosed neuroendocrine tumor with hepatic metastasis, has been started on sandostain, taken 2 doses thus far p/w increasing generalized weakness, inability to eat due to poor appetite and also nausea and vomiting. Denies odynophagia or dysphagia. Estimates symptoms have been ongoing for 2 weeks. On arrival at ER, noted to be hypotensive with SBP 60s with hyperkalemia, hypoglycemia, leukocytosis and new 02 requirement. Denies any recent fever, chest pain, dyspnea, abdominal pain. Nausea, vomiting+. states diarrhea is improved over baseline. No bleeding noted at any site, no hematemesis or brianna CTA negative for PE, shows large B/L pleural effusions. gut edema vs colitis on abdominal CT. Adequately covered with abx at this time. Hypoglycemia resolved. Hyperkalemia resolved. BP maintained on 20 phenylephrine and octreotide. Discontinue IVF given large pleural effusions, interim development of LE pitting edema. Lasix 20mg iv x1, monitor urine output and BP closely in ICU CT chest abd w contrast IMPRESSION:- 1. No pulmonary embolism. 2. Large bilateral pleural effusions. 3. Mild emphysema. IMPRESSION:- 1. Innumerable hepatic metastases. 2. There is a moderate amount of ascites . 3. Diffuse colon wall thickening which may be secondary to colitis or the presence of ascites and edema. Hosp Course: Patient was admitted for management of possible neuroendocrine tumor/carcinoid crisis. She was put on octreotide and phenylephrine. Secondary to meeting sepsis criteria further work-up was pursued, IV Zosyn was started for colitis related changes evident onCT abdomen pelvis. She has remained afebrile. No significant diarrhea during hospitalization, her albumin is 1.6, I have started her on albumin iv every 12 hours. Her map is ranging between 61-65mmhg. she is not requiring any oxygen. Today she is feeling much more energetic and alert. [facility] does not have any beds available, family gave consent to look for other options, she has been accepted at [facility] ICU. Our oncologist Dr. Welsh agreed with the transfer at the time of admission. 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 Medications to be continued at the time of transfer Zosyn Albumin Octreotide which is running at 50 mics per hour Phenylephrine which is running at 20 mics ONCOLOGY notes by Dr Welsh Neuroendocrine tumor per ultrasound-guided liver biopsy done on June 28, 2021 further evaluation showed mitotic index more than 20 mitosis per 2 mm??? and KI 67 more than 20%, being positive for CDX 2, suggestive of GI primary, alpha-fetoprotein level was low which suggest a low probability of neuroendocrine tumor having primary liver lesion. CT scan of abdomen done on June 16, 2021 showed enlarged and cirrhotic appearance of the liver with numerous hypoenhancing lesions, solid enhancing mass in the right hepatic lobe and cystic and necrotic lesion in the left lateral lobe concerning for neoplasm, metastatic disease. 2.5 cm oval left retroperitoneal enhancing lesion concerning for mass or mesenteric lymph node. Clinically, patient is doing reasonably well, still has diarrhea but is improving since she is on Metamucil and Sandostatin, will proceed with next monthly dose of Sandostatin LAR 20 mg. And then we will refer her to neuroendocrine clinic [facility], for evaluation regarding clinical trial if available. And patient will also need hepatology consultation regarding her hepatic cirrhosis and ascites mentioned on the CT PET scan Physical Exam Narrative: EXAM NARRATIVE: Patient today is much more awake and alert as compared to yesterday Still endorsing fatigue and lethargy EOMI, PERRLA Nonfocal neuro exam Third spacing evident on her extremities Otherwise weak and lethargic fatigue BMI 17 S1, S2 Saturating well on room air Bilateral breath sounds without adventitious/audible stridor or wheezing Nonfocal neuro exam Her attention span is also short Abdomen is soft no signs of peritonitis Urinary Catheter Management^: [place]: Cath Placed During This Visit: no Reason for Continuing Indwelling Catheter: Accurate Measurement of Urinary Output in Critically Ill Patients TS Data Data Completed and Pending: Completed Studies During Hospitalization Category Date Time Status CT angio chest w abd pel w con Rout ine Cat Scan 09/19/21 00:25 Completed XR chest 1V meka ble [id number] Stat Exams 09/18/21 17:30 Completed XR chest 1V meka ble [id number] Stat Exams 09/18/21 22:25 Completed Pending at discharge Category Date Time Status Blood Culture Sta t Lab 09/18/21 20:29 Results Serotonin Whole B lood Routine Lab 09/19/21 01:35 Received Vancomycin Trough Timed Lab 09/21/21 04:00 Ordered CV. echo limited [id number] Routine Ultrasound 09/19/21 06:24 Taken Labs from last 24 hours 09/20/21 09/20/21 09/19/21 04:46 04:46 00:47 WBC 17.5 H RBC 4.61 Hgb 12.2 Hct 35.7 L MCV 77.4 L MCH 26.5 L MCHC 34.2 RDW 17.4 H Plt Count 237 MPV 11.1 H Neut % (Auto) 83.5 Lymph % (Auto) 9.7 [place] % (Auto) 5.6 Eos % (Auto) 0.0 Baso % (Auto) 0.2 Neut # (Auto) 14.59 H Lymph # (Auto) 1.7 [place] # (Auto) 1.0 H Eos # (Auto) 0.0 Baso # (Auto) 0.0 Nucleated RBC % (a uto) 0 Nucleated RBCs # 0.0 Sodium 137 Potassium 4.1 Chloride 104 Carbon Dioxide 22 Anion Gap 15.1 BUN 31 H Creatinine 1.1 H GFR Calculation 50.5 L Glucose 80 Calculated Osmolal ity 290 Calcium 6.8 L Total Bilirubin 1.3 H AST 203 H ALT 71 H Alkaline Phosphata se 234 H Total Protein 4.1 L Albumin 1.8 L Globulin 2.3 Nasal/Oral COVID-1 9 PCR Not detected Vitals: Last Vital Signs Temp 97.6 F 09/20/21 05:00 Pulse 86 09/20/21 10:00 Resp 15 09/20/21 10:00 BP 78/57 09/20/21 10:00 Pulse Ox 89 L 09/20/21 10:00 TS Medications Medications Home Medications pantoprazole 40 mg tablet,delayed release 40 mg PO QAM 06/20/21 [History Confirmed 09/19/21] alprazolam 0.25 mg PO Q6H PRN 09/19/21 [History Confirmed 09/19/21] cholestyramine (with sugar) See Rx Instructions .ROUTE .COMPLEX 09/19/21 [History Confirmed 09/19/21] diphenoxylate-atropine 1 tab PO Q4H PRN 09/19/21 [History Confirmed 09/19/21] ondansetron HCl 4 mg PO TID PRN 09/19/21 [History Confirmed 09/19/21] potassium chloride See Rx Instructions .ROUTE .COMPLEX 09/19/21 [History Confirmed 09/19/21] spironolactone 25 mg PO DAILY 09/19/21 [History Confirmed 09/19/21] Active Medications Acetaminophen (Acetaminophen 325 Mg Tablet) 650 mg PO Q6H PRN PRN Reason: Mild/Mod Pain Or Temp >/= 101 Enoxaparin Sodium (Enoxaparin 40 Mg/0.4 Ml Syringe) 40 mg SUBCUT Q24H [facility] Last Admin: 09/20/21 00:05 Dose: 40 mg Documented by: Octreotide Acetate 500 mcg/ (Sodium Chloride) 101 mls @ 10.1 mls/hr IV .Q10H [facility] Last Admin: 09/20/21 07:03 Dose: 50 mcg/hr, 10.1 mls/hr Documented by: Piperacillin Sod/Tazobactam (Sod 3.375 gm/ Sodium Chloride) 50 mls @ 12.5 mls/hr IV Q8H [facility] Last Admin: 09/20/21 11:57 Dose: 12.5 mls/hr Documented by: Phenylephrine HCl 25 mg/ (Sodium Chloride) 252.5 mls @ 0 mls/hr IV .Q0M [facility]; Protocol Last Titration: 09/20/21 10:13 Dose: 60 mcg/min, 36.36 mls/hr Documented by: Albumin Human (Albumin) 12.5 gm in 250 mls @ 300 mls/hr IV Q12H [facility] Stop: 09/21/21 16:29 Last Infusion: 09/20/21 05:27 Dose: Infused Documented by: Methylprednisolone Sodium Succinate (Methylprednisolone Sod Succ 40 Mg/Ml Inj) 40 mg IVP Q12H [facility] Last Admin: 09/20/21 04:12 Dose: 40 mg Documented by: Ondansetron HCl (Ondansetron 2 Mg/Ml Sdv 2 Ml) 4 mg IVP Q8H PRN PRN Reason: vomiting, or N/V if npo Last Admin: 09/20/21 08:38 Dose: 4 mg Documented by: Pantoprazole Sodium (Pantoprazole Dr 40 Mg Tablet) 40 mg PO BID CHING Last Admin: 09/20/21 08:38 Dose: 40 mg Documented by: Discharge Plan Discharge Patient Disposition: Xfer Other Condition: Stable Prescriptions: Continued pantoprazole 40 mg tablet,delayed release (DR/EC) 40 mg PO QAM RF: 0 ondansetron HCl 4 mg tablet 4 mg PO TID PRN (Reason: Nausea And Vomiting) RF: 0 diphenoxylate-atropine 2.5-0.025 mg tablet 1 tab PO Q4H PRN (Reason: Diarrhea) RF: 0 alprazolam 0.25 mg tablet 0.25 mg PO Q6H PRN (Reason: Anxiety) RF: 0 potassium chloride 20 mEq tablet,ER particles/crystals See Rx Instructions .ROUTE .COMPLEX RF: 0 cholestyramine (with sugar) 4 gram powder See Rx Instructions .ROUTE .COMPLEX RF: 0 Held spironolactone 25 mg tablet 25 mg PO DAILY RF: 0 Hold Instructions: Resume on 10/25/21. Discharge Orders: Transfer Out of Facility (Order); Ordered 09/20/21 Ordered By: Kirk Lucero Referrals: Mt Collado MD [Primary Care Provider] - Discharge Diet: Cardiac Discharge Activity: Increase activity as tolerated Transfer Attestations Time Spent in Transfer Care*: less than 30 min Quality Metrics Clinical Quality Measures: During this hospital stay, did patient experience: None Coding Level of Care Code Acute Spindle Tester for Chg Fwd Diagnoses Septic shock A41.9; R65.21 Dehydration E86.0 Neuroendocrine carcinoma metastatic to liver C7A.8; C7B.8 Liver mass R16.0
--- NOTE | 2021-09-20 13:10 | PC.NURSE ---
Report called to Kamari Sharp RN, [facility] 4323. No further questions.
[2021-09-20] MEDS: phenylephrine inj 25 MG in sodium chloride 0.9% 250 ML 36.36 MG IV (14:58)
--- NOTE | 2021-09-20 15:20 | PC.NURSE ---
[facility]. Daughter at bedside. Belongings with patient. Left facility at 1520.
[2021-09-25 16:42] LABS: Serotonin Whole Blood 839 ng/mL (56-244)
== END 2021-09-20 15:20 | disposition short-term general hospital (02) | DRG 871 ==
LOC: ER 22:48 → ICU 23:00
PROVIDERS: Family Medicine; Admitting Provider Student in an Organized Health Care Education/Training Program; Emergency Provider Emergency Medicine; PCP Family Medicine; Visit Provider Internal Medicine
DX: A41.9 Sepsis, unspecified organism (principal); R65.21 Severe sepsis with septic shock; C7A.8 Other malignant neuroendocrine tumors; C7B.8 Other secondary neuroendocrine tumors; Z68.1 Body mass index [BMI] 19.9 or less, adult; J90 Pleural effusion, not elsewhere classified; R18.8 Other ascites; R64 Cachexia; E46 Unspecified protein-calorie malnutrition; K52.9 Noninfective gastroenteritis and colitis, unspecified; K74.60 Unspecified cirrhosis of liver; E86.0 Dehydration; R74.02 Elevation of levels of lactic acid dehydrogenase [LDH]; R11.2 Nausea with vomiting, unspecified; R63.0 Anorexia; I95.9 Hypotension, unspecified; E87.5 Hyperkalemia; E16.2 Hypoglycemia, unspecified; J43.9 Emphysema, unspecified; R09.02 Hypoxemia; Z79.899 Other long term (current) drug therapy; Z87.891 Personal history of nicotine dependence
CPT/HCPCS: 36416; 36556; 36600; 51702; 71045; 71275; 74177; 80051; 80053; 81001; 82330; 82550; 82805; 82962; 83605; 83690; 84260; 84443; 85025; 85378; 86403; 87040; 87086; 87635; 87804; 93005; 93306; 93308; 96365; 96367; 96372; 96375; 96376; 99285; J1650; J1940; J2354; J2370; J2405; J2543; J2920; J3370; J7030; J7050; P9041; Q9967